=== PATIENT | female | born 1960 | race Caucasian/White ===

== ENCOUNTER → 2018-08-08 | Outpatient (REF) ==
--- NOTE | 2018-08-08 14:10 | REP ---
LUMBAR SPINE SERIES: THREE VIEWS. HISTORY: Degenerative disc disease. FINDINGS: Lumbar vertebral body heights are preserved. Alignment is normal. There is degenerative disc disease at L4-5 and L5-S1 with narrowing, vacuum phenomena, and spurring. This is most pronounced at L5-S1. Vascular calcification is seen in a normal caliber aorta. There are calcified gallstones in right upper quadrant of the abdomen. There is osteoarthritic facet hypertrophy bilaterally at L4-5 and L5-S1. Sacrum and SI joints are intact. IMPRESSION: Degenerative disc and osteoarthritic facet changes at L5-S1 and L4-5. Cholelithiasis. Electronically Signed by Genaro Hickey MD 08/08/2018 04:07 P
== END ==
LOC: M SMT 12:01
PROVIDERS: ATTEND Internal Medicine
DX: M51.36 Other intervertebral disc degeneration, lumbar region (principal)

== ENCOUNTER → 2018-10-02 | Outpatient (REF) | payer OTHER | LOC: M LAB LCGH 12:46 | PROVIDERS: ATTEND Family Medicine | DX: Z00.01 Encounter for general adult medical examination with abnormal findings (principal) ==

== ENCOUNTER → 2024-05-23 | Outpatient (CLI) | payer OTHER ==
[~2024-05-23] MED LIST: ASPI81CH33 PO; LOSA100T46; METF-838; PRAV40TA2; SPIR1AER
== END ==
LOC: M RAD 08:32
PROVIDERS: ATTEND Specialist
DX: R16.1 Splenomegaly, not elsewhere classified (principal)